=== PATIENT | female | born 1990 | race Caucasian/White ===

== ENCOUNTER 2019-03-11 02:55 | Emergency (ER) | payer BC ==
--- NOTE | 2019-03-11 04:09 | PDOC ---
History of Present Illness - General Chief Complaint: Urinary Problem Stated Complaint: FEVER,UTI Time Seen by Provider: 03/11/19 04:08 - History of Present Illness Initial Comments: 29 year old woman with no pmhx who presents with 2 days of fever and L sided lower vaginal pain radiating into the L inguinal crease. She denies any other complaints. Her and her partner recently had negative STD tests last week. She noted some vaginal discharge consistent with a yeast infection and she has been treating over the counter medication. She denies any nausea, vomiting, dysuria, hematuria, diarrhea, constipation ROS GENERAL/CONSTITUTIONAL: No fever or chills. No weakness. HEAD, EYES, EARS, NOSE AND THROAT: No change in vision. No ear pain or discharge. No sore throat. CARDIOVASCULAR: No chest pain or shortness of breath RESPIRATORY: No cough, wheezing, or hemoptysis. GASTROINTESTINAL: No nausea, vomiting, diarrhea or constipation. GENITOURINARY: No dysuria, frequency, or change in urination. MUSCULOSKELETAL: No joint or muscle swelling or pain. No neck or back pain. NEUROLOGIC: No headache, vertigo, loss of consciousness, or change in strength/ sensation. PE GENERAL: Awake, alert, and fully oriented, in no acute distress HEAD: No signs of trauma, normocephalic, atraumatic EYES: PERRLA, EOMI, sclera anicteric, conjunctiva clear ENT: oropharynx clear without exudates. Moist mucosa NECK: Normal ROM, supple LUNGS: No distress, speaks full sentences, clear to auscultation bilaterally HEART: Regular rate and rhythm, normal S1 and S2, no murmurs, rubs or gallops, peripheral pulses normal and equal bilaterally. ABDOMEN: Soft, nontender, normoactive bowel sounds. No guarding, no rebound. No masses EXTREMITIES : Normal inspection, Normal range of motion, no edema. No clubbing or cyanosis. NEUROLOGICAL: Cranial nerves II through XII grossly intact. Normal speech, no focal sensorimotor deficits SKIN: Warm, Dry, normal turgor, no rashes or lesions noted PELVIC: external vaginal exam with L lower labial cyst with erythema, tenderness to L inguinal crease, closed cervical os, white discharge in vaginal canal, MDM DDX including but not limited to: bartholyin cyst vs abscess W/U: - cbc, cmp, upreg, ua TX: - ivf ED Course: Ancef started for janeth 03/11/19 05:31 OBGYN paged pending callback lab with wbc 16.2 Dr. Bunch reached, will come down and see patient Patient to be signed out to day team. Carito Astudillo, PGY2 Emergency Medicine Past History - Past Medical History Allergies/Adverse Reactions: Allergies Allergy/AdvReac Type Severity Reaction Status Date / Time No Known Allergies Allergy Verified 03/11/19 04:15 ED Treatment Course - LABORATORY CBC & Chemistry Diagram: 03/11/19 05:40 03/11/19 05:40 *DC/Admit/Observation/Transfer - Discharge Dispostion Condition at time of disposition: Fair - Referrals - Patient Instructions - Post Discharge Activity
[2019-03-11 04:15] VITALS: BMI 23.1
--- NOTE | 2019-03-11 05:01 | PDOC ---
Attending Attestation - Resident Resident Name: Carito Astudillo - ED Attending Attestation I have performed the following: I have examined & evaluated the patient, The case was reviewed & discussed with the resident, I agree w/resident's findings & plan - HPI HPI: 03/11/19 06:38 Pt comes with left labia abscess; she has pain and redness and difficulty walking and sitting; she and boyfriend are STD negative as of last week - Physicial Exam PE: 03/11/19 06:39 Agree with resident exam. 03/11/19 06:41 Pt has a large abscess inferior to the left labia. 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 - Medical Decision Making 03/11/19 06:41 Pt will be seen by vice president of development this AM and they will drain her bartholin cyst. Pt will be signed out to the day ER team.
[2019-03-11] MEDS ORDERED: CEFAZOLIN 1 GM in DEXTROSE 5%-WATER - 50 ML IVPB ONE (05:08)
[2019-03-11] MEDS ORDERED: CEFAZOLIN 1 GM/D5W 1 GM/50 ML BAG ONE (05:33)
[2019-03-11 05:54] LABS: BASO % 0.3 % (0-2.0); EOS % 0.2 % (0-4.5); HEMATOCRIT 34.3 % (32.4-45.2); HEMOGLOBIN 12.3 GM/dL (10.7-15.3); LYMPH % 4.6 % (8-40); MCH 32.6 pg (25.7-33.7); MCHC 35.8 g/dl (32.0-36.0); MEAN CELL VOLUME 91.1 fl (80-96); MEAN PLT VOLUME 8.9 fl (7.5-11.1); MONO % 8.9 % (3.8-10.2); PLATELET COUNT 156 K/MM3 (134-434); RBC 3.76 M/mm3 (3.60-5.2); RDW 12.8 % (11.6-15.6); WHITE BLOOD COUNT 16.2 K/mm3 (4.0-10.0)
[2019-03-11 06:23] LABS: ALBUMIN 3.6 g/dl (3.4-5.0); BILIRUBIN,TOTAL 0.4 mg/dL (0.2-1); BLOOD UREA NITROGEN 8.3 mg/dL (7-18); CALCIUM 8.8 mg/dL (8.5-10.1); CREATININE 0.6 mg/dL (0.55-1.3); POTASSIUM 3.9 mmol/L (3.5-5.1)
--- NOTE | 2019-03-11 06:58 | PDOC ---
*Physical Exam - Vital Signs Last Vital Signs Temp Pulse Resp BP Pulse Ox 98.8 F 91 H 20 137/82 99 03/11/19 02:55 03/11/19 02:55 03/11/19 02:55 03/11/19 02:55 03/11/19 02:55 ED Treatment Course - LABORATORY CBC & Chemistry Diagram: 03/11/19 05:40 03/11/19 05:40 - ADDITIONAL ORDERS Additional order review: Laboratory Results 03/11/19 05:40 Sodium 138 Potassium 3.9 Chloride 104 Carbon Dioxide 26 Anion Gap 7 L BUN 8.3 Creatinine 0.6 Est GFR (CKD-EPI)AfAm 143.77 Est GFR (CKD-EPI)NonAf 124.04 Random Glucose 100 Calcium 8.8 Total Bilirubin 0.4 AST 10 L ALT 16 Alkaline Phosphatase 61 Total Protein 7.0 Albumin 3.6 03/11/19 05:40 RBC 3.76 MCV 91.1 MCHC 35.8 RDW 12.8 MPV 8.9 Neutrophils % 86.0 H Lymphocytes % 4.6 L Monocytes % 8.9 Eosinophils % 0.2 Basophils % 0.3 - Medications Given in the ED: ED Medications Discontinued Medications Generic Name Dose Route Start Last Admin Trade Name Freq PRN Reason Stop Dose Admin Cefazolin Sodium 1 gm/ 50 mls @ 100 mls/hr 03/11/19 05:08 03/11/19 05:40 Dextrose IVPB 03/11/19 05:37 100 mls/hr ONCE ONE Administration Medical Decision Making - Medical Decision Making 03/11/19 06:59 WBC 16 Normal UA, not Abbi Olsen is a 29y previously healthy F presenting w L vaginal pain due to bartholin cyst. Received signout from Dr Astudillo. Negative STD tests last week, no UTI, not . Given 1g ancef, 1L NS, tylenol for pain. Dr Alivia ROBLEDO consulted, drain cyst. D/c home w bactrim BID 2d, f/u w Dr Bunch. *DC/Admit/Observation/Transfer Diagnosis at time of Disposition: Bartholin cyst - Discharge Dispostion Disposition: HOME Condition at time of disposition: Improved - Prescriptions Prescriptions: Sulfamethoxazole/Trimethoprim [Bactrim Ds -] 1 tab PO BID 7 Days #14 tablet - Referrals Referrals: Christiano Bucnh MD [Staff Physician] - - Patient Instructions Printed Discharge Instructions: DI for Bartholin Gland Cyst Additional Instructions: You were seen for vaginal pain due to a bartholin cyst. You were given antibiotics and the cyst was drained. Please make an appointment with Dr Alivia robledo regarding your cyst. Take the prescribed medication as directed Come back to the ED if you have increased pain, trouble urinating, or vomiting. - Post Discharge Activity
[2019-03-11] MEDS ORDERED: SODIUM CHLORIDE 1,000 ML IV SCH (07:00)
[2019-03-11 07:56] LABS: URINE APPEARANCE CLEAR; URINE BILIRUBIN NEGATIVE (NEGATIVE); URINE COLOR YELLOW; URINE GLUCOSE (UA) NEGATIVE (NEGATIVE); URINE KETONE 1+ (NEGATIVE); URINE LEUK ESTERASE NEGATIVE (NEGATIVE); URINE NITRITE NEGATIVE (NEGATIVE); URINE PROTEIN NEGATIVE (NEGATIVE)
[2019-03-11] MEDS ORDERED: ACETAMINOPHEN 325 MG TABLET (FP) PO ONE (09:00)
[2019-03-11] MEDS ORDERED: ACETAMINOPHEN 325 MG TABLET (FP) ONE (09:06)
[2019-03-11] MEDS ORDERED: LIDOCAINE HCL 1%, 10 MG/ML (20ML VIAL) ONE (10:08)
[2019-03-11 11:08] VITALS: BP 111/73; PULSE 73; TEMP 98.7
--- NOTE | 2019-03-11 11:55 | CONSULT ---
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: Alzheimer's, CVA, Dementia, Migraine, Multiple Sclerosis, Peripheral Neuropathy, Parkinson's, Seizure, Syncope, TIA, Vertigo, Other Cardio/Vascular: No: AFIB, Aneurysm, Aortic Insufficiency, Aortic Stenosis, CAD , CHF, Deep Vein Thrombosis, HTN, Hyperlipdemia, [place], Mitral Insufficiency, Mitral Stenosis, Murmur, Pulmonary Hypertension, Other Pulmonary: No: Asthma, Bronchitis, Cancer, COPD, O2 Dependent, Pneumonia, Previously Intubated, Pulmonary Embolus, Pulmonary Fibrosis, Sleep Apnea, Other Gastrointestinal: No: Ascites, Cancer, Constipation, Crohn's Disease, Diverticulitis, Diverticulosis, Esophageal Varices, Gastritis, GERD, GI Bleed, Hemorrhoids, Hiatal Hernia, Inflamatory Bowel Disease, Irritable Bowel Disease, Pancreatitis, Peptic Ulcer Disease, Ulcerative Colitis, Other Hepatobiliary: No: Cirrhosis, Cholelithiasis, Cholecystitis, Choledocholithiasis , Hepatitis A, Hepatitis B, Hepatitis C, Other Renal/: No: Renal Failure, Renal Inusuff, BPH, Cancer, Hematuria, Hemodialysis , Neurogenic Bladder, Renal Calculi, UTI, Other Reproductive: No: Ectopic , Endometriosis, Fibroids, PID, Polycystic Ovary Syndrome, Postmenopausal, Other Heme/Onc: No: Anemia, B12 Deficiency, Bleeding Disorder, Cancer, Current Chemotherapy, Current Radiation Therapy, Hemochromatosis, Hypercoaguable State, Myeloproliferative Synd, Sickle Cell Disease, Sickle Cell Trait, Thrombocytopenia, Other Infectious Disease: No: AIDS, C-Diff, Herpes Zoster, HIV, MRSA, STD's, Tuberculosis, VREF, Other Psych: No: Addictions, Anxiety, Bipolar, Depression, Panic, Psychosis, Schizophrenia, Other Musculoskeletal: No: Bursitis, Chronic low back pain, Hemiparesis, Hemiplegia, Osteoarthritis, Paraplegia, Other Rheumatology: No: Fibromyalgia, Gout, Lupus, Rheumatoid Arthritis, Sarcoidosis, Vasculitis, Other ENT: No: Allergic Rhinitis, Sinusitis, Other Endocrine: No: Phil's Disease, Nancy's Disease, Diabetes Insipidus, Diabetes Mellitus, Hyperparathyroidism, Hyperthyroidism, Hypothyroidism, Osteopenia, SIADH, Other Dermatology: No: Basal Cell, Cellulitis, Eczema, Melanoma, Psoriasis, Squamous Cell, Other - Past Surgical History Past Surgical History: No: None, AAA Repair, AICD, Amputation, Appendectomy, Arthrosocopy, AV Fistula/Graft, Bariatric Surgery, Breast Biopsy, Bypass, CABG, Carotid Endarterectomy, Cataract Removal, Cholecystectomy, Colectomy, Colonoscopy, Colostomy, Craniotomy, , Cystectomy, Hernia Repair, Hysterectomy, Ileal Conduit, Ileosotomy, Joint Replacement, Kidney Transplant, Laminectomy, Liver Transplant, Mastectomy, Nephrectomy, Oopherectomy, Orchiectomy, Permanent Pacemaker, Prostatectomy, Splenectomy, Stent, Thoracotomy , TURP, Tonsillectomy, Tubal Ligation, Upper Endoscopy, Valve Replacement, Vasectomy, Vein Stripping/Ligation - Alcohol/Substance Use Hx Alcohol Use: Yes History of Substance Use: reports: None - Smoking History Smoking history: Never smoked Have you smoked in the past 12 months: No Home Medications - Allergies Allergies/Adverse Reactions: Allergies Allergy/AdvReac Type Severity Reaction Status Date / Time No Known Allergies Allergy Verified 03/11/19 04:15 - Home Medications Home Medications: Ambulatory Orders Sulfamethoxazole/Trimethoprim [Bactrim Ds -] 1 tab PO BID 7 Days #14 tablet Family Disease History - Family Disease History Family History: Unremarkable Review of Systems Unable to obtain ROS, reason: pain and swelling - Review of Systems Constitutional: reports: No Symptoms Eyes: reports: No Symptoms HENT: reports: No Symptoms Neck: reports: No Symptoms Cardiovascular: reports: No Symptoms Respiratory: reports: No Symptoms Gastrointestinal: reports: No Symptoms Genitourinary: reports: No Symptoms Breasts: reports: No Symptoms Reported Musculoskeletal: reports: No Symptoms Integumentary: reports: No Symptoms Neurological: reports: No Symptoms Endocrine: reports: No Symptoms Hematology/Lymphatic: reports: No Symptoms Psychiatric: reports: No Symptoms Physical Exam Vital Signs: Vital Signs Temperature 98.7 F 03/11/19 11:06 Pulse Rate 73 03/11/19 11:06 Respiratory Rate 18 03/11/19 11:06 Blood Pressure 111/73 03/11/19 11:06 O2 Sat by Pulse Oximetry (%) 99 03/11/19 11:06 Constitutional: Yes: Calm HENT: Yes: Atraumatic, Normocephalic Neck: Yes: Supple Cardiovascular: Yes: Regular Rate and Rhythm Respiratory: Yes: Regular Gastrointestinal: Yes: Normal Bowel Sounds ...Rectal Exam: Yes: Other Renal/: Yes: Other (Left bartholin cyst abscess incised and drained. Incision made on vaginal aspect of the cyst after betadine and local anesthesia applied. Culture obtained and cyst irrigated copiously with sterile saline. Word catheter placed without complications. No tracking, fluctuance, crepitus noted after conclusion of procedure.) Breast(s): Yes: Other (deferred) Musculoskeletal: Yes: WNL Extremities: Yes: WNL Integumentary: Yes: WNL Psychiatric: Yes: Alert, Oriented Labs: CBC, BMP 03/11/19 05:40 03/11/19 05:40 Assessment/Plan Bartholin cyst abscess I&D in ER. Patient tolerated the procedure well. Post- procedure precautions reviewed and instructed to follow up at health center within a week. -D/C home -Bactrim prophylactically -Discussed with ER provider.
== END 2019-03-11 11:13 | disposition home or self-care (01) ==
LOC: JER 02:55
PROC: 0U9L0ZZ Drainage of Vestibular Gland, Open Approach (ICD-10-PCS; principal; 2019-03-11)
DX: N75.1 Abscess of Bartholin's gland (principal)
CPT/HCPCS: 36415; 80053; 81003; 84703; 85025; 87070; 87077; 87086; 87186; 87205; 99283-25; J7030

== ENCOUNTER 2019-09-02 10:58 | Emergency (ER) | payer BC ==
[2019-09-02 11:10] VITALS: BP 115/84; PULSE 107; TEMP 98.1; BMI 22.3
[2019-09-02] MEDS ORDERED: DEXAMETHASONE LIQUID 0.5 MG/5 ML PO ONE (12:35)
[2019-09-02] MEDS ORDERED: DEXAMETHASONE SOD PHOSPHATE 10 MG/1 ML VIAL ONE (12:38)
--- NOTE | 2019-09-02 12:39 | PDOC ---
History of Present Illness - General Chief Complaint: Sore Throat Stated Complaint: SORE THROAT Time Seen by Provider: 09/02/19 12:09 History Source: Patient Exam Limitations: Clinical Condition - History of Present Illness Initial Comments: 09/02/19 12:36 Patient with no significant past medical history present with complaint of 3- day history of tactile fever, sore throat, painful to swallow, chills and body aches. Patient report taking Tylenol yesterday for fever. Patient reported no fever today. Patient never checked temperature for fever. Denies nausea, vomiting, abdominal pain, chest pain, cough, congestion. Denies any other symptoms. Denies any sick contacts or recent travel Is this a multiple visit Asthma Patient?: No Timing/Duration: other (3 days) Past History - Past Medical History Allergies/Adverse Reactions: Allergies Allergy/AdvReac Type Severity Reaction Status Date / Time No Known Allergies Allergy Verified 09/02/19 11:02 Home Medications: Ambulatory Orders Amox-Tr/K Cl [Augmentin - 875Mg Tablet] 1 tab PO BID #14 tablet 09/02/19 Methylprednisolone [Medrol Dose Tanner] 4 mg PO ASDIR #21 tablet 09/02/19 COPD: No - Psycho Social/Smoking Cessation Hx Smoking History: Never smoked Have you smoked in the past 12 months: No Hx Alcohol Use: Yes Drug/Substance Use Hx: No Review of Systems - Review of Systems Able to Perform ROS?: Yes Is the patient limited Hebrew proficient: No Constitutional: Yes: Chills, Fever, Malaise HEENTM: Yes: Symptoms Reported, See HPI, Throat Pain, Difficulty Swallowing. No : Eye Pain, Blurred Vision, Tearing, Recent change in vision, Double Vision, Cataracts, Ear Pain, Ocular Prothesis, Ear Discharge, Nose Pain, Nose Congestion , Tinnitus, Nose Bleeding, Hearing Loss, Throat Swelling, Mouth Pain, Dental Problems, Mouth Swelling, Other Respiratory: No: Symptoms reported, See HPI, Cough, Orthopnea, Shortness of Breath, SOB with Exertion, SOB at Rest, Stridor, Wheezing, Productive cough, Hemoptysis, Other Cardiac (ROS): No: Symptoms Reported, See HPI, Chest Pain, Edema, Irregular Heart Rate, Lightheadedness, Palpitations, Syncope, Chest Tightness, Other ABD/GI: No: Symptoms Reported, See HPI, Abd. Pain w/ defecation, Blood Streaked Bowels, Constipated, Diarrhea, Nausea, Rectal Bleeding, Vomiting, Indigestion, Abdominal cramping : No: Dysuria, Frequency, Urgency Musculoskeletal: No: Symptoms Reported Integumentary: No: Symptoms Reported, Rash All Other Systems: Reviewed and Negative *Physical Exam - Vital Signs Last Vital Signs Temp Pulse Resp BP Pulse Ox 98.1 F 107 H 18 115/84 98 09/02/19 11:00 09/02/19 11:00 09/02/19 11:00 09/02/19 11:00 09/02/19 11:00 - Physical Exam 09/02/19 12:39 GENERAL: Well developed, well nourished. Awake and alert. No acute distress. HEENT: Moderate pharyngeal erythema with white exudate. Mildly enlarged bilateral tonsils. Normocephalic, atraumatic. PERRLA, EOMI. No conjunctival pallor. Sclera are non-icteric. Moist mucous membranes. NECK: Supple. Full ROM. CARDIOVASCULAR: Regular rate and rhythm. No murmurs, rubs, or gallops. Distal pulses are 2+ and symmetric. PULMONARY: No evidence of respiratory distress. Lungs clear to auscultation bilaterally. No wheezing, rales or rhonchi. ABDOMINAL: Soft. Non-tender. Non-distended. No rebound or guarding. No organomegaly. Normoactive bowel sounds. MUSCULOSKELETAL Normal range of motion at all joints. SKIN: Warm and dry. Normal capillary refill. No rashes. NEUROLOGICAL: Alert, awake, appropriate. Gait is normal without ataxia. PSYCHIATRIC: Cooperative. Good eye contact. Appropriate mood General Appearance: Yes: Nourished, Appropriately Dressed. No: Apparent Distress Medical Decision Making - Medical Decision Making 09/02/19 12:37 Patient with no significant past medical history present with complaint of 3- day history of tactile fever, sore throat, painful to swallow, chills and body aches. Patient report taking Tylenol yesterday for fever. Patient reported no fever today. Patient never checked temperature for fever. Denies nausea, vomiting, abdominal pain, chest pain, cough, congestion. Denies any other symptoms. Denies any sick contacts or recent travel Exam significant for moderate erythema to pharynx with mildly enlarged right tonsils with white exudates. Patient afebrile. Lungs clear to auscultation bilateral. Patient no acute distress. Symptoms likely strep versus viral pharyngitis. Rapid strep ordered to evaluate for strep pharyngitis. Decadron 10 mg p.o. ordered for enlarged tonsils 09/02/19 13:37 Rapid strep positive. Patient stable for outpatient management pharyngitis tonsillitis on Augmentin twice daily for a week and Medrol Tanner for tonsillitis with advised to continue Tylenol as needed for fever with ENT follow-up Discharge - Discharge Information Problems reviewed: Yes Clinical Impression/Diagnosis: Malaise Pharyngitis Qualifiers: Pharyngitis/tonsillitis etiology: streptococcus Qualified Code(s): J02.0 - Streptococcal pharyngitis Condition: Stable Disposition: HOME - Admission No - Additional Discharge Information Prescriptions: Amox-Tr/K Cl [Augmentin - 875Mg Tablet] 1 tab PO BID #14 tablet Methylprednisolone [Medrol Dose Tanner] 4 mg PO ASDIR #21 tablet - Follow up/Referral Referrals: James Pichardo MD [Staff Physician] - - Patient Discharge Instructions Patient Printed Discharge Instructions: DI for Pharyngitis/Tonsillopharyngitis -- Adult Additional Instructions: Take prescribed medication as prescribed for throat pain and body aches. Increase fluid intake. Continue with Tylenol today with Motrin as needed for fever. Follow-up with primary care if throat pain persist for more than 3 days or referred ENT - Post Discharge Activity
== END 2019-09-02 13:37 | disposition home or self-care (01) ==
LOC: JERFT 10:58
DX: J02.0 Streptococcal pharyngitis (principal); B95.0 Streptococcus, group A, as the cause of diseases classified elsewhere
CPT/HCPCS: 87880; 99284-25